=== PATIENT | male | born 1945 | race Caucasian/White ===

== ENCOUNTER 2019-08-29 13:26 | Outpatient (REF) | payer MEDICARE, OTHER, SELFPAY | END 2019-08-29 13:46 | LOC: LBO 13:26 | PROVIDERS: PCP Internal Medicine; Visit Provider Internal Medicine | DX: R31.9 Hematuria, unspecified (principal) | CPT/HCPCS: 87077; 87086; 87186 ==

== ENCOUNTER 2019-10-02 00:24 | Outpatient (REF) | payer MEDICARE, OTHER, SELFPAY | END 2019-10-02 00:44 | LOC: LBN 00:24 | PROVIDERS: PCP Internal Medicine; Visit Provider Internal Medicine | DX: R82.998 Other abnormal findings in urine (principal) | CPT/HCPCS: 87077; 87086; 87186 ==

== ENCOUNTER 2021-03-25 16:43 | Outpatient (REF) | payer MEDICARE, OTHER, SELFPAY ==
[2021-03-25 19:48] LABS: Albumin 4.2 g/dL (3.4-5.0); Alkaline Phosphatase 77 U/L (46-116); BUN 18 mg/dL (7-18); Bilirubin, Total 0.5 mg/dL (0.2-1.0); CREATININE 0.7 mg/dL (0.70-1.30); Calcium 9.4 mg/dL (8.5-10.1); Calculated LDL 96 mg/dL (<100); Cholesterol 197 mg/dL (<200); Glucose 95 mg/dL (74-106); HDL Cholesterol 75 mg/dL (40-60); Sodium 129 mmol/L (136-145); Triglyceride 131 mg/dL (<150)
[2021-03-25 19:49] LABS: ALT 38 U/L (16-63); AST 22 U/L (15-37); Anion Gap 7.7 mmol/L (3-11); CO2 28.3 mmol/L (21.0-32.0); Chloride 93 mmol/L (98-107); Potassium 3.7 mmol/L (3.5-5.1)
[2021-03-26 17:52] LABS: PSA, Screening 6.1 ng/mL (0.0-6.5)
== END 2021-03-25 16:44 | disposition home or self-care (01) ==
LOC: LBN 16:43
PROVIDERS: PCP Internal Medicine; Visit Provider Internal Medicine
DX: E78.00 Pure hypercholesterolemia, unspecified (principal); I10 Essential (primary) hypertension; E87.1 Hypo-osmolality and hyponatremia; N13.8 Other obstructive and reflux uropathy; N40.1 Benign prostatic hyperplasia with lower urinary tract symptoms; Z12.5 Encounter for screening for malignant neoplasm of prostate
CPT/HCPCS: 80053; 80061; 84153